=== PATIENT | female | born 1975 | race Hispanic/Latino ===

== ENCOUNTER 2016-12-08 12:41 | Emergency (ER) | payer MEDICARE, MEDICAID ==
[~2016-12-08] VITALS: Ht 149.9 cm; Wt 90.9 kg
[~2016-12-08 12:41] MED LIST: GABAPENTIN PO; GLPZ5T PO; INSU100V7 SUBQ; METF10002 PO; NITR50CA PO; OXYC5CAP4 PO; SERT100T9 PO
[2016-12-08 12:51] VITALS: BP 118/73; PULSE 111; RESP 18; O2SAT 98
[2016-12-08 13:55] LABS: APPEARANCE,URINE HAZY (CLEAR,HAZY); COLOR,URINE STRAW (YELLOW); OCCULT BLOOD,URINE NEGATIVE (NEGATIVE); PH,URINE 5.5 (5.0-8.0); UROBILINOGEN,URINE NORMAL (NORMAL); YEAST,URINE MANY (NONE SEEN)
[2016-12-08 14:28] LABS: BASOPHILS % (AUTO) 0.7 % (0-3); EOSINOPHILS % (AUTO) 3.4 % (0-5); MONOCYTES % (AUTO) 5.5 % (4-12); Mean Corpuscular Hemoglobin 25.3 pg (27.0-35.0); Mean Corpuscular Volume 78.2 fL (81-100); NEUTROPHILS % (AUTO) 62.7 % (40-74); Platelet Count 257 bil/L (150-400)
[2016-12-08 14:57] LABS: Magnesium 1.8 mg/dL (1.6-2.6)
[2016-12-08 15:50] VITALS: BP 145/85; PULSE 102; RESP 18; O2SAT 99
--- NOTE | 2016-12-08 16:54 | ED.REPORT ---
HPI-Abd Pain F Under 42 Date of Service Dec 08, 2016 ED Provider: Jorge Rojas MD Pt is a 41 y/o female w/ a hx significant for NIDDM, chronic UTI, presenting to the ED c/o nausea and intermittent diarrhea onset about 1 week ago. Last week she was experiencing N/V/D and she went to her PCP 6 days ago and was diagnosed with gastroenteritis and was prescribed Cipro. Labs at that time were normal. Her symptoms have decreased to include only nausea, intermittent mild diarrhea, and diffuse abdominal pain. Pt denies fever, chills, CP, SOB. She presents to the emergency department today requesting a recheck. Nursing Notes Stated Complaint: DIARRHEA/ABDOMINAL PAIN Chief Complaint: Female Abdominal Pain Nursing Notes Reviewed: Yes Allergies: Coded Allergies: Salt (Verified Allergy, Severe, 12/08/16) tongue swelling. pramipexole Di-HCl (Verified Allergy, Severe, ALTERED HR, MIGRAINES, ) Scheduled ([Gabapentin]) 100 MG PO HS Glipizide (Glipizide) 5 Mg Tablet 5 MG PO BID Insulin Glargine (Lantus U100 Insulin Vial) 100 Unit/Ml Vial 25 UNIT SUBQ QPM- INSULIN Metformin (Metformin) 1,000 Mg Tablet 1,000 MG PO BIDWM Nitrofurantoin Macrocrystal (Nitrofurantoin Macrocrystal) 50 Mg Capsule 50 MG PO BID Sertraline HCl (Sertraline) 100 Mg Tablet 100 MG PO DAILY Scheduled PRN Ondansetron ODT (Zofran ODT) 4 Mg Tablet 4 MG PO Q4H PRN PRN For Nausea oxyCODONE (oxyCODONE) 5 Mg Capsule 5 MG PO Q4H PRN PRN For Pain General Time Seen by MD: 15:59 Chief Complaint Other (NVD) Hx Obtained From: Patient Arrived By: Walk-in Sudden in Onset?: No Onset Occurred: 1 week ago Symptom Duration: Since onset Progression since Onset: Gradually improving Location: : Diffuse Quality: Aching Radiation: : Does not radiate Severity: Current: Mild Severity: Maximum: Mild Recent Healthcare: Recent doctor visit, Previous diagnosis Past Medical History Past Medical History Spina bifida hydochephalus with shunt Chiari Malformation chronic UTI Anxiety NIDDM Herniated disc Past Surgical History CSF shunt and revision x1 Chiari decompression 2012, Prov Sami L45 fusion and laminectomy 2012 Teathered cord release hamstring lengthened Reports: Cholecystectomy Smoking History Never Smoker Social History Alcohol Use: "Social" Drug Use: Denies drug use Other Social History: Good social support Occupation lives with Aunt Ambulatory Status Wheelchair Review of Systems Constitutional: Denies: Chills, Fever Respiratory: Denies: Non-productive cough, Shortness of breath Cardiovascular: Denies: Chest pain, Syncope GI: Reports: Abdominal pain, Diarrhea, Nausea, Vomiting, Denies: Bloody/tarry stool, Hematemesis, Hematochezia Complete sys rev & neg: except as marked. Physical Exam Initial Vital Signs Vital Signs (First) Date Time Temp Pulse Resp B/P Pulse Ox O2 Delivery O2 Flow Rate FiO2 12/08/16 12:51 36.2 111 18 118/73 98 Room Air Initial VS: Reviewed, Vital signs abnormal Head / Eyes: Atraumatic, Normocephalic, PERRL ENT: Mucous membranes moist, Conjunctiva normal, No scleral icterus Neck: Supple, Full range of motion Extremities: Vascular intact, Neuro intact, No swelling, No tenderness Skin: Warm, Dry, No cyanosis Neurologic: Alert, Oriented, Nonfocal Psychiatric: Mood/affect normal, Behavior normal, Normal thought content General/Constitutional: Awake, Alert, No acute distress, Well appearing, Cooperative, Not toxic appearing Respiratory / Chest: Atraumatic, Breath sounds NL, Breath sounds = bilat, No respiratory distress, No rales, No rhonchi, No wheezing, No retractions, No stridor, No chest tenderness, No chest wall deformity, No crepitus Cardiovascular: Heart rate NL, Regular rhythm, Heart sounds NL, No gallop, No murmurs, No rubs, Cap refill not delayed, Peripheral circulation NL Abdomen: Atraumatic, Soft, No guarding, No rebound, No distention, No palpable mass Tenderness/Guarding/Rebound: Positive: Tender diffuse (mild) Back: Full range of motion, Painless range of motion Interpretation & Diagnostics Lab Results Interpretation Result Diagram: 12/08/16 1421 12/08/16 1421 Test 12/08/16 13:05 12/08/16 14:21 Urine Color Straw (YELLOW) Urine Appearance Hazy (CLEAR,HAZY) Urine pH 5.5 (5.0-8.0) Urine Specific [place] 1.020 (1.003-1.035) Urine Protein Negativemg/dL (NEG,TRACE) Urine Glucose (UA) 1000mg/dL (NEGATIVE) Urine Ketones Negativemg/dL (NEGATIVE) Urine Occult Blood Negative (NEGATIVE) Urine Nitrite Positive (NEGATIVE) Urine Bilirubin Negative (NEGATIVE) Urine Urobilinogen Normalmg/dL (NORMAL) Urine Leukocyte Esterase Negative (NEGATIVE) Urine RBC 0-2/hpf (0-2) Urine WBC 0-5/hpf (0-5) Urine Epithelial Cells Occasional/hpf (NONE-MOD) Urine Crystals None seen (NONE SEEN) Urine Bacteria Moderate/hpf (NONE-FEW) Urine Hyaline Casts None/lpf (NONE) Urine Granular Casts None seen (NONE SEEN) Urine Waxy Casts None seen (NONE SEEN) Urine Red Blood Cell Casts None seen (NONE SEEN) Urine White Blood Cell Casts None seen (NONE SEEN) Urine Mucus None seen (None Seen) Urine Trichomonas None seen (NONE SEEN) Urine Yeast Many (NONE SEEN) Urinalysis Comment None Urine Culture Reflexed Indicated White Blood Count 6.9th/mm3 (3.8-10.1) Red Blood Count 5.42mil/mm3 (3.90-5.20) Hemoglobin 13.7g/dL (12.0-15.6) Hematocrit 42.4% (35.0-46.0) Mean Corpuscular Volume 78.2fL (81-100) Mean Corpuscular Hemoglobin 25.3pg (27.0-35.0) Mean Corpuscular Hemoglobin Concent 32.3% (32.0-37.0) Red Cell Distribution Width 16.0% (12.3-15.4) Platelet Count 257bil/L (150-400) Neutrophils (%) (Auto) 62.7% (40-74) Lymphocytes (%) (Auto) 27.6% (14-46) Monocytes (%) (Auto) 5.5% (4-12) Eosinophils (%) (Auto) 3.4% (0-5) Basophils (%) (Auto) 0.7% (0-3) Sodium Level 138mEq/L (134-144) Potassium Level 4.0mEq/L (3.5-5.2) Chloride Level 103mEq/L (97-108) Carbon Dioxide Level 19mmol/L (18-29) Blood Urea Nitrogen 12mg/dL (6-20) Creatinine 0.49mg/dL (0.57-1.00) Estimat Glomerular Filtration Rate 201mL/min (>59) Glucose Level 207mg/dL (60-99) Calcium Level 9.2mg/dL (8.5-10.1) Magnesium Level 1.8mg/dL (1.6-2.6) Total Bilirubin 0.4mg/dL (0.0-1.2) Aspartate Amino Transf (AST/SGOT) 26U/L (0-50) Alanine Aminotransferase (ALT/SGPT) 35U/L (0-32) Alkaline Phosphatase 91U/L (25-150) Total Protein 7.3g/dL (6.4-8.4) Albumin 4.1g/dL (3.4-5.0) Lipase 48U/L (13-60) Re-Eval/Medical Decision Med Decision/Clinical Course Pt is a 41 y/o female w/ a hx significant for NIDDM, chronic UTI, presenting to the ED c/o nausea and intermittent diarrhea onset about 1 week ago. Last week she was experiencing N/V/D and she went to her PCP 6 days ago and was diagnosed with gastroenteritis and was prescribed Cipro. Labs at that time were normal. Her symptoms have decreased to include only nausea, intermittent mild diarrhea, and diffuse abdominal pain. Pt denies fever, chills, CP, SOB. She presents to the emergency department today requesting a recheck. Emergency department she is borderline tachycardic though otherwise afebrile with stable vital signs in apparent distress. Abdominal examination is completely benign and she tolerates firm palpation in all 4 quadrants. Laboratory studies including CBC and CMP are relatively unremarkable. Urinalysis is consistent with urinary tract infection and she suffers from no chronic UTIs, she is currently on antibiotics which would adequately cover her urinary tract infection and her urine has been sent for culture. In regards to her gastroenteritis type symptoms she reports that she has been gradually improving with resolution of her nausea/vomiting and decreased nonbloody diarrhea. She does not appear significantly dehydrated, hemodynamically unstable or toxic in appearance. There are no findings suggestive of acute surgical intra-abdominal process. test is negative. I feel that she is appropriate for discharge home. Follow-up and return precautions were reviewed in detail she was discharged in good condition. Re-Evaluation/Progress : Time of Eval: 17:35 Re-Evaluation/Progress Note: Pt rechecked. Informed pt of plan for treatment. Pt understands and agrees with plan for treatment. F/U instructions and RTER warnings given. All questions addressed. Counseled Regarding: Diagnosis, Lab results, Need for follow-up, When/why to return to ED Discharge & Departure Primary Impression: Abdominal pain Abdominal location: generalized Qualified Code: R10.84 - Generalized abdominal pain Additional Impressions: Gastroenteritis Urinary tract infection Disposition: Home Discharge Condition All VS Reviewed: Yes Condition: Stable Patient Instructions: Acute Abdominal Pain (ED) Additional Instructions: Thank you for seeking care at the emergency room. It is difficult for us to make definitive diagnoses in the ED but we believe that you are experiencing abdominal pain related to your resolving gastroenteritis. Our primary goal today in the ED was to evaluate you for any life-threatening conditions. Your evaluation was reassuring. You will be discharged with a prescription for Zofran. Take as needed for nausea. You should follow-up with your primary doctor in the next week. You should return to the ED immediately if you develop fevers, worsening abdominal pain, worsening diarrhea, persistent vomiting, shortness of breath, chest pain, lightheadedness, weakness or any other concerning signs or symptoms. Thank you for letting us partake in your care today. Referrals: Jeremy Neri DO (PCP) Maryiblaura Attestation Portions of this note were transcribed by German Almanza. I, Dr. Rojas personally performed the history, physical exam and medical decision-making; I reviewed and confirmed the accuracy of the information in the transcribed note. Signed by Teena Marie, 12/08/16 - 1800 copies to: Jeremy Neri Beck O MD Dec 08, 2016 16:54 GERMAN ALMANZA Dec 08, 2016 17:35
[2016-12-08] MEDS ORDERED: ONDA4TAB9 PO (17:35)
[2016-12-08 18:05] VITALS: RESP 16
== END 2016-12-08 18:05 | disposition home or self-care (01) ==
LOC: SED 12:41
DX: K52.9 Noninfective gastroenteritis and colitis, unspecified (principal); N39.0 Urinary tract infection, site not specified; B96.20 Unspecified Escherichia coli [E. coli] as the cause of diseases classified elsewhere; E11.9 Type 2 diabetes mellitus without complications; Z87.440 Personal history of urinary (tract) infections; Z98.2 Presence of cerebrospinal fluid drainage device; Z79.84 Long term (current) use of oral hypoglycemic drugs; Z79.4 Long term (current) use of insulin; Z88.8 Allergy status to other drugs, medicaments and biological substances

== ENCOUNTER → 2017-06-28 | Day surgery (SDC) | payer MEDICARE, MEDICAID ==
[~2017-06-28] VITALS: Ht 149.9 cm; Wt 90.7 kg
[~2017-06-28] MED LIST changes: +0.9% Sodium Chloride 1,000 ML IV PRN; +ALBU18HF INH; +ATOR80TA77 PO; +IBUP800T28 PO; +INSU100C8 SUBQ; +METR500T PO; +ONDA4TAB9 PO; +OXYC-474 PO; +PIOG15TA21 PO; +Sodium Chloride LOK Flush 10 mL Syringe IV PRN; +fentaNYL-PF 50 mCg/mL 2 mL Inj IVPUSH PRN
[2017-06-28 13:36] VITALS: BP 118/81; PULSE 99; RESP 16; O2SAT 95
[2017-06-28 14:55] VITALS: BP 108/62; PULSE 82; O2SAT 93
[2017-06-28 15:04] VITALS: BP 112/69; PULSE 100; O2SAT 99
--- NOTE | 2017-06-28 15:34 | ENDO ---
[address] [address] ENDOSCOPY PROCEDURE PATIENT: WILBER RAYGOZA : 1975 MR#: [id number] ADMIT: 06/28/2017 JOB ID: [id number] DATE: 06/28/2017 PRIMARY PROVIDER: Jeremy Neri D.O. PROCEDURE: Flexible sigmoidoscopy. INDICATIONS: A 41-year-old female with a history of bright red blood per rectum of late. However, she has not seen any significant blood for about a week or so now. Repeat flex-sig is pursued. EQUIPMENT: PCF H 190 DL. SEDATION: 1. 3 mg Versed. 2. 75 mcg fentanyl. COMPLICATIONS: None identified. BOWEL PREPARATION: Fair at best with two Fleet enemas. Even in the rectum, there was some yellow to brown solid stool debris that was soft and malleable. We were able to navigate beyond this to about 35 cm where there was a considerable volume of soft yellow to brown stool. PROCEDURAL INFORMATION: After the risks and benefits were explained, written and verbal informed consent was obtained. The patient was brought into the endoscopy suite and placed in left lateral decubitus position. Sedation was achieved as above. A digital rectal examination was accomplished. Mild internal hemorrhoids appreciated. Fairly relaxed anal sphincter mechanism. No mass lesions. No pain with the examination to suggest fissure. The scope was introduced into the rectum and advanced to the level of about 35 cm from the anal verge. We did not proceed any further secondary to the presence of formed stool debris. The scope was slowly withdrawn. Multiple direct views were ultimately made at the level of the dentate line. Photographs were taken. The colon was decompressed. The scope removed the patient who tolerated the procedure well. FINDINGS: No evidence of proctitis. No evidence of distal colitis. No evidence of any significant polyps or mass lesions. Prep conditions as above consistent with a history of chronic constipation. Moderately inflamed and almost circumferentially erythematous internal hemorrhoidal cushions. These were thought to be only mild to moderately engorged. No thrombosis. No mass lesions appreciated. ENDOSCOPIC DIAGNOSIS: [id number] internal hemorrhoidal engorgement with mild associated inflammation. RECOMMENDATIONS: 1. Continue bowel regimen for soft regular movements. 2. Should there be any recurrence of bleeding, I would recommend another course of intermittent Epsom salt baths and/or a short course of Anusol HC suppository therapy. At present in that the patient is relatively asymptomatic, I am not convinced that any therapy other than soft regular stools would be of benefit.
== END | disposition home or self-care (01) ==
LOC: END 00:39
PROVIDERS: ATTEND Internal Medicine Gastroenterology
DX: K62.5 Hemorrhage of anus and rectum (principal); K64.8 Other hemorrhoids; K59.09 Other constipation; E11.9 Type 2 diabetes mellitus without complications; E78.2 Mixed hyperlipidemia; Z79.4 Long term (current) use of insulin
CPT/HCPCS: 45330; G0500; J2250; J3010; J7030